=== PATIENT | female | born 1990 | race Caucasian/White ===

== ENCOUNTER → 2020-08-28 | Outpatient (CLI) | payer OTHER ==
[~2020-08-28] MED LIST: DIATRIZOATE MEGL/DIATRIZOA SOD 30 ML BTL PO ONE; IOPAMIDOL 370 MG/ML 200 ML INFUS..BTL INJ ONE; SODIUM CHLORIDE 0.9% 50ML 50 ML ONE
--- NOTE | 2020-08-28 18:00 | Diagnostic Imaging Report ---
EXAM: CT Abdomen and Pelvis WITH contrast INDICATION: Ventral hernia suspicious for bowel incarceration versus translation. COMPARISON: None. TECHNIQUE: Abdomen and pelvis were scanned utilizing a multidetector helical scanner from the lung base to the pubic symphysis after administration of IV contrast. Coronal and sagittal reformations were obtained. Routine protocol was performed. Scan was performed when during portal venous phase. IV CONTRAST: 100 mL of Isovue 370 ORAL CONTRAST: None COMPLICATIONS: None RADIATION DOSE: Total DLP: 426 mGy*cm Estimated effective dose: (DLP x 0.015 x size factor) mSv CTDIvol has been reviewed. It is below the limits set by the Radiation Protocol Committee (RPC). Dose modulation, iterative reconstruction, and/or weight based adjustment of the mA/kV was utilized to reduce the radiation dose to as low as reasonably achievable. FINDINGS: LINES and TUBES: None. LOWER THORAX: Unremarkable HEPATOBILIARY: No focal hepatic lesions. No biliary ductal dilation. GALLBLADDER: There is a 1 cm radiodense gallstone. No wall thickening. SPLEEN: No splenomegaly. PANCREAS: No focal masses or ductal dilatation. ADRENALS: No adrenal nodules KIDNEYS/URETERS: Kidneys enhance symmetrically. No hydronephrosis. No cystic or solid mass lesions. No stones. GI TRACT: No abnormal distention, wall thickening, or evidence of bowel obstruction. Appendix is normal. PELVIC ORGANS/BLADDER: There is an intrauterine contraceptive device in place. The urinary bladder has a normal wall contour. Pelvic organs are normal for technique. LYMPH NODES: No lymphadenopathy. VESSELS: Unremarkable. PERITONEUM / RETROPERITONEUM: No free air or fluid. BONES: There is bilateral L5 pars defect with grade 1 anterolisthesis of L5 on S1. The bones are otherwise within normal limits. SOFT TISSUES: There are two fat containing para-umbilical hernias. The one on the left has a ventral wall defect measuring 2.2 cm, the one on the right has been toward defect measuring 1.5 cm. There are no loops of bowel contained within these hernias. IMPRESSION: 1. Two adjacent fat containing para-umbilical hernias with ventral wall defect measuring 2.2 cm and 1.5 cm. No bowel contained within these hernias. No evidence of bowel obstruction or inflammation. 2. Cholelithiasis without evidence of cholecystitis. 3. Bilateral L5 pars defect with grade 1 anterolisthesis of L5 on S1 Signed by: Chantelle Kamara MD on 08/28/2020 5:57 PM
== END ==
LOC: CT 15:42
PROVIDERS: ATTEND Surgery
DX: K43.2 Incisional hernia without obstruction or gangrene (principal)
CPT/HCPCS: 74177; 81025; Q9967

== ENCOUNTER 2020-09-14 08:14 | Inpatient (IN) | payer OTHER ==
[2020-09-11 14:58] LABS: BASOPHILS % 0.4 % (0.0-1.0); EOSINOPHILS # (AUTO) 0.2 (0.0-0.4); EOSINOPHILS % 2.6 % (0.0-6.0); HEMOGLOBIN 12.7 g/dL (12.0-16.0); LYMPHOCYTES # (AUTO) 1.4 (1.0-3.2); LYMPHOCYTES % 19.4 % (18.0-39.1); MEAN CORPUSCULAR HEMOGLOBIN 26.4 pg (28-32); MEAN CORPUSCULAR HGB CONC 31.8 g/dL (31-35); MEAN CORPUSCULAR VOLUME 83.2 fL (81-99); MONOCYTES # (AUTO) 0.4 (0.2-0.8); MONOCYTES % 5.1 % (4.4-11.3); NEUTROPHILS # (AUTO) 5.3 (2.1-6.9); NEUTROPHILS % 72.2 % (38.7-80.0); PLATELET COUNT 213 x10e3/uL (140-360); RED BLOOD COUNT 4.81 x10e6/uL (3.6-5.1); RED CELL DISTRIBUTION WIDTH 14.5 % (11.7-14.4)
[2020-09-11 15:25] LABS: ANION GAP 10.7 mmol/L (8-16); BLOOD UREA NITROGEN 12 mg/dL (7-26); BUN/CREATININE RATIO 15 (6-25); CALCIUM 9.2 mg/dL (8.4-10.2); CARBON DIOXIDE 28 mmol/L (22-29); CHLORIDE 105 mmol/L (98-107); CREATININE, SERUM 0.79 mg/dL (0.57-1.11); EST GLOMERULAR FILTRATION RATE > 60 ML/MIN (60-); GLUCOSE 98 mg/dL (74-118); POTASSIUM 3.7 mmol/L (3.5-5.1); SODIUM 140 mmol/L (136-145)
[~2020-09-14] VITALS: Ht 160 cm; Wt 80.8 kg
[~2020-09-14 08:14] MED LIST changes: -DIATRIZOATE MEGL/DIATRIZOA SOD 30 ML BTL PO ONE; -IOPAMIDOL 370 MG/ML 200 ML INFUS..BTL INJ ONE; +MELOXICAM7.5 MG PO; +MONTELUKAST SOD10 MG PO; -SODIUM CHLORIDE 0.9% 50ML 50 ML ONE; +VALACYCLOVIR500 MG PO; +XYZAL5 MG
[2020-09-14] MEDS ORDERED: CEFAZOLIN SOD 1 GM/NS 50ML 50 ML IV ONE (08:56)
[2020-09-14] MEDS ORDERED: BUPIVACAINE 0.25% 30ML SDV ONE (10:48)
[2020-09-14] MEDS ORDERED: CLINDAMYCIN PHOS 300MG/2ML VIAL ONE (11:48)
[2020-09-14] MEDS ORDERED: GLYCOPYRROLATE 0.2 MG/ML VIAL ONE (11:50)
[2020-09-14] MEDS ORDERED: HYDROMORPHONE 2MG/ML 2 MG/ML ML ONE (11:51)
[2020-09-14] MEDS ORDERED: ACETAMINOPHEN 1000 MG/100 ML 100 ML IV ONE (11:51)
[2020-09-14] MEDS ORDERED: ROCURONIUM BROMIDE 10 MG/ML 5ML VIAL IV ONE (14:28)
[2020-09-14] MEDS ORDERED: CEFAZOLIN SOD 1 GM VIAL ONE (14:28)
[2020-09-14] MEDS ORDERED: SEVOFLURANE INHAL SOLN 250 ML PEN BTL ONE (14:28)
[2020-09-14] MEDS ORDERED: NEOSTIGMINE 1 MG/ML 10ML VIAL ONE (14:28)
[2020-09-14] MEDS ORDERED: LIDOCAINE HCL 2% LOCAL INJ 5 ML SDV VIAL INJ ONE (14:28)
[2020-09-14] MEDS ORDERED: DEXAMETHASONE SOD PHOS INJ 4 MG/ML VIAL ONE (14:28)
[2020-09-14] MEDS ORDERED: ONDANSETRON HCL INJ 2MG/ML 2ML 2 MG/ML VIAL ONE (14:28)
[2020-09-14] MEDS ORDERED: PROPOFOL IV EMULSION 10 MG/ML 20 ML VIAL ONE (14:28)
[2020-09-14] MEDS ORDERED: KETOROLAC TROMETHAMINE 30 MG/ML VIAL ONE (14:28)
[2020-09-14] MEDS ORDERED: MIDAZOLAM HCL 2 MG/2 ML VIAL ONE (14:38)
[2020-09-14] MEDS ORDERED: FENTANYL CITRATE/PF 100MCG/2 ML INJ ONE (14:38)
[2020-09-14] MEDS ORDERED: BACITRACIN ZINC 15 GM OINT ONE (14:52)
[2020-09-14] MEDS ORDERED: MELOXICAM 7.5 MG TAB PO PRN (15:00)
[2020-09-14] MEDS: ONDANSETRON HCL INJ 2MG/ML 2ML 2 MG/ML VIAL IV PRN ×2 (15:18→18:26)
[2020-09-14] MEDS ORDERED: KETOROLAC TROMETHAMINE 30 MG/ML VIAL IV PRN (15:30)
--- NOTE | 2020-09-14 16:09 | Operative Report ---
DATE OF PROCEDURE: 09/14/2020 SURGEON: Sanjay Celestin MD PREOPERATIVE DIAGNOSIS: Ventral hernias. POSTOPERATIVE DIAGNOSIS: Ventral hernias. PROCEDURE PERFORMED: Repair of ventral hernias with partial omentectomy and placement of a large Proceed ventral patch mesh in the intraabdominal location and placement of a Prolene hernia system as an onlay patch. SUPERVISOR FIREARMS: [place] Kelly. ESTIMATED BLOOD LOSS: About 125 mL. DRAINS: 10 mm flat Clive-Jessica drain. COMPLICATIONS: None. INDICATION AND FINDINGS: This is a 30-year-old female who several years ago had undergone repair of a ventral hernia laparoscopically. She had a complicated course. She was told by her operating surgeon that she had a 2nd hernia that developed the next day and then she had to go back to the operating room, and she now presents with a bulge of the abdomen that is unpleasant to her and increasing in size. On physical examination, she had two palpable hernias located one to the left of the umbilical region, the other one to the right and inferior to it. The CAT scan revealed 2 ventral hernia defects, one large on the left than the right; however, after exploration of the wound through a transverse incision, she was found to have multiple hernias. The total of 5 hernias were found and we had to place a Proceed ventral patch in the intraabdominal cavity to cover at least 3 of those hernias in order to prevent closure with tension and then we loosely closed thin fascia overdose. There were two other small hernias that were closed initially primarily and then covered with a mesh as an Onlay patch and they were properly meshed. A 10 mm flat Clive-Jessica drain was placed. At the end of the procedure, which took longer than expected due to the complexity of the case about 4 hours, which was longer than the usual time, I informed the patient's that she needed to be admitted for postop care. DESCRIPTION OF PROCEDURE: With the patient lying on the operative table in the supine position after administration of general anesthesia, she was prepped and draped for repair of ventral hernia. A transverse incision was made across the midline extending from one end of the hernia on the left to the other end of the hernia on the right and then, the dissection was carried down through the skin and subcutaneous tissues. There were multiple adhesions. There were multiple pockets of herniation with the old mesh. We had to dissect each pocket, each hernia individually, remove some of the old mesh. We also had to perform a partial omentectomy by transecting the omentum and tying it off with 2-0 Vicryl. After we reduced all these hernias that were incarcerated with omentum and performing the partial omentectomy, we then prepared the defect to closure. I decided to place the Proceed ventral patch to cover the 3 larger hernias in the intraabdominal location and it was secured in multiple locations with 2-0 Ethibond to prevent rotation and then to the fascia through the straps. The other two remaining hernias were smaller and were closed primarily with interrupted 2-0 Ethibond sutures. We loosely approximated the fascia on the three hernias that were the larger ones that had been repaired with a PPV patch and covered the fascia over the old mesh to prevent any exposure to the outside and then we used the 6-inch polypropylene mesh to cover the defects. The mesh was secured to the fascia using a series of interrupted 2-0 Ethibond sutures as well as 2-0 Vicryl and as well as segun. The mesh laid flat completely without any tension. We then placed a 10 mm flat Clive-Jessica drain to drain the wound and brought out through a stab wound inferior to the incision and we placed it in such a way that both sides of the wound would drain . We then closed the subcutaneous tissues using 2-0 plain catgut for the soft tissues, this subcuticular plane was closed using 3-0 Vicryl and the skin was closed with a combination of segun and 3-0 silk. Sterile dressing was applied. The patient tolerated the procedure well, was taken to the recovery room in stable condition. MD AARON Santo/MAX /[id number]
--- NOTE | 2020-09-14 17:00 | NUR ---
RECEIVED REPORT FROM PACU. PATIENT ARRIVED TO THE UNIT @ 1700 VIA STRETCHER. PATIENT IN STABLE CONDITION, NO S/S OF DISTRESS NOTED. ABDOMEN BINDER NOTED WITH A NATHALY DRAIN, DRESSING UNDER ABDOMEN BINDER C/D/I. IV SITE ASYMPTOMATIC AND PATENT, TRANSPARENT DRESSING, C/D/I. BED IN LOWEST POSITION AND LOCKED, SIDE RAILS X2, NONSKID SOCKS APPLIED. CALL LIGHT WITHIN REACH.
[2020-09-14 17:14] VITALS: BP 103/69
[2020-09-14 17:15] VITALS: BP 103/69
[2020-09-14 17:24] VITALS: BP 103/69
[2020-09-14] MEDS: CEFAZOLIN SOD 1 GM/NS 50ML 50 ML IV SCH (18:21)
[2020-09-14] MEDS: DEXTROSE 5%/LACTATED RINGERS 1,000 ML IV SCH (18:21)
[2020-09-14] MEDS: PANTOPRAZOLE 40 MG 10ML VIAL IV SCH (18:21)
[2020-09-14] MEDS: HYDROMORPHONE 1MG/1ML INJ IV PRN (18:26)
[2020-09-14 19:23] VITALS: BP 113/74
--- NOTE | 2020-09-14 19:46 | NUR ---
COMPLETED BEDSIDE SHIFT REPORT AND ROUNDING WITH ONCOMING NIGHT NURSE. PATIENT IN STABLE CONDITION, NO S/S OF DISTRESS NOTED. ABDOMEN BINDER NOTED WITH A NATHALY DRAIN, DRESSING UNDER ABDOMEN BINDER C/D/I. IV SITE ASYMPTOMATIC AND PATENT, TRANSPARENT DRESSING, C/D/I. BED IN LOWEST POSITION AND LOCKED, SIDE RAILS X2, NONSKID SOCKS APPLIED. CALL LIGHT WITHIN REACH.
[2020-09-14 19:49] VITALS: BP 113/74
[2020-09-14] MEDS: HYDROCODONE/APAP 7.5MG-325MG 1 EA TAB PO PRN (22:20)
[2020-09-14 23:54] VITALS: BP 112/72
[2020-09-15] VITALS (7 sets, daily range): BP systolic 103–114; BP diastolic 65–71
[2020-09-15] MEDS: CEFAZOLIN SOD 1 GM/NS 50ML 50 ML IV SCH ×4 (00:17→16:09)
[2020-09-15] MEDS: HYDROCODONE/APAP 7.5MG-325MG 1 EA TAB PO PRN ×4 (04:10→20:25)
[2020-09-15 05:31] LABS: BASOPHILS % 0.1 % (0.0-1.0); EOSINOPHILS % 0.2 % (0.0-6.0); HEMOGLOBIN 10.1 g/dL (12.0-16.0); LYMPHOCYTES # (AUTO) 1.1 (1.0-3.2); LYMPHOCYTES % 11.6 % (18.0-39.1); MEAN CORPUSCULAR HEMOGLOBIN 26.4 pg (28-32); MEAN CORPUSCULAR HGB CONC 31.6 g/dL (31-35); MEAN CORPUSCULAR VOLUME 83.8 fL (81-99); MONOCYTES # (AUTO) 0.6 (0.2-0.8); MONOCYTES % 6.9 % (4.4-11.3); NEUTROPHILS # (AUTO) 7.4 (2.1-6.9); NEUTROPHILS % 80.8 % (38.7-80.0); PLATELET COUNT 162 x10e3/uL (140-360); RED BLOOD COUNT 3.82 x10e6/uL (3.6-5.1); RED CELL DISTRIBUTION WIDTH 14.2 % (11.7-14.4)
[2020-09-15 05:44] LABS: ANION GAP 12.2 mmol/L (8-16); BLOOD UREA NITROGEN 10 mg/dL (7-26); BUN/CREATININE RATIO 14 (6-25); CALCIUM 8.1 mg/dL (8.4-10.2); CARBON DIOXIDE 27 mmol/L (22-29); CHLORIDE 104 mmol/L (98-107); CREATININE, SERUM 0.71 mg/dL (0.57-1.11); EST GLOMERULAR FILTRATION RATE > 60 ML/MIN (60-); GLUCOSE 111 mg/dL (74-118); POTASSIUM 4.2 mmol/L (3.5-5.1); SODIUM 139 mmol/L (136-145)
--- NOTE | 2020-09-15 06:15 | NUR ---
REMOVED STEVE AT THIS TIME. CATHETER TIP INTACT. D/T VOID AT 1215.
[2020-09-15] MEDS: DEXTROSE 5%/LACTATED RINGERS 1,000 ML IV SCH ×2 (06:24→10:16)
[2020-09-15] MEDS: VALACYCLOVIR HCL 500 MG TAB PO SCH (09:10)
--- OUTSIDE RECORDS SUMMARY | 2020-09-15 10:05 | XMS REPORT | Continuity of Care Document ---
Author Author Raji [employer] DORINA Romero Organization [employer] Address Unknown Phone Unavailable Care Team Providers Care Rope Maker Name Role Phone TELA [employer] Unavailable Un available Problems Problem Status Onset Date Classification Date Reported Comments Source UNK Active 0 07/25/2015 [facility] K43.2 Active 07/25/2015 [facility] UMBILICAL HERNIA Active 03/13/2015 [facility] 03/13/2015 [facility] 553.1 Active 03/13/2015 [facility] Dilation and curettage (procedure) Active Problem 11/2018 [facility] [place] Incisional hernia (disorder) A ctive Problem 11/2018 [facility] [place] Obesity (disorder) Active Problem 07/27/2019 [facility] [place] Umbilical hernia (disorder) Re solved Problem 11/2018 [facility] [place] Entire sciatic nerve (body structure) Active Problem [facility] UMBILICAL HERNIA Active [facility] Medications Medication Details Route Status Patient Instructions Ordering Provider Order Date Source Acetaminophen 325 MG / Hydrocodone Aldair trate 10 MG Oral Tablet [[place] ] 1 tab, Route: PO, Drug Form: TAB, Dosing Weight 100.136, kg, Q6H, PRN Pain, Start date: 08/10/15 9:34:00, Duration: 30 day, Stop date: 09/09/15 9:33:00 Inactive 08/10/2015 [facility] Ofirmev or = 50 kg, Start trerence e: 08/10/15 9:34:00 Inactive 08/10/2015 [facility] Ondansetron 4 mg, Route: IVP, ONCE, Dosing Weight 100.136, kg, PRN Nausea & Vomiting, Start date: 08/10/15 9:34:00 Inactive 08/10/2015 [facility] Flumazenil 0.2 mg, Route: IVP, PRN, Dosing Weight 100.136, kg, PRN Benzodiazepine Reversal, Initial dose, Start date: 08/10/15 9:34:00, Duration: 30 day, Stop date: 09/09/15 8:33:00 Inactive 08/10/2015 [facility] Naloxone 0.04 mg, Route: IVP, Q2MIN, Dosing Weight 100.136, kg, PRN Narcotic Reversal, Start date: 08/10/15 9:34:00, Duration: 8 doses or times, Stop date: Limited # of times Inactive 08/10/2015 [facility] Oxycodone 10 mg, Route: PO, Dr ug form: TAB, Q4H, Dosing Weight 100.136, kg, PRN Pain Score 7-10, Start date: 08/10/15 9:34:00, Duration: 30 day, Stop date: 09/09/15 9:33:00 Inactive 08/10/2015 [facility] Fentanyl 50 microgram, Route: IVP, Q5Min, Dosing Weight 100.136, kg, PRN Pain Score 7-10, Start date: 08/10/15 9:34:00, Duration: 2 doses or times, Stop date: Limited # of times Inactive 08/10/2015 [facility] Ketorolac 30 mg, Route: IVP, O NCE, Dosing Weight 100.136, kg, Start date: 08/10/15 9:34:00, Duration: 1 doses or times, Stop date: 08/10/15 9:34:00 Inactiv e 08/10/2015 [facility] Hydromorphone 0.5 mg, Route: I SHEEP CLIPPER, Q5Min, Dosing Weight 100.136, kg, PRN Pain Score 7-10, Start date: 08/10/15 9:34:00, Duration: 4 doses or times, Stop date: Limited # of times Inactive 08/10/2015 [facility] Calcium Chloride 0.0014 MEQ/ML / Potassi um Chloride 0.004 MEQ/ML / Sodium Chloride 0.103 MEQ/ML / Sodium Lactate 0.028 MEQ/ML Injectable Solution 1,000 mL, Rate: 25 ml/hr, Infuse over: 4 0 hr, Route: IV, Dosing Weight 100.136 kg, Total Volume: 1,000, Start date: 08/10/15 6:53:00, Duration: 30 day, Stop date: 09/09/15 6:52:00 Inactive 08/10/2015 [facility] Cefazolin Notes: Same as: Ancef Inactive 08/08/2015 [facility] Ondansetron 4 mg, Route: IVP, ONCE, Dosing Weight 99.602, kg, PRN Nausea & Vomiting, Start date: 07/06/15 9:16:00 Inactive 07/06/2015 [facility] Flumazenil 0.2 mg, Route: IVP, PRN, Dosing Weight 99.602, kg, PRN Benzodiazepine Reversal, Initial dose, Start date: 07/06/15 9:16:00, Duration: 30 day, Stop date: 08/05/15 9:15:00 Inactive 07/06/2015 [facility] Naloxone 0.04 mg, Route: IVP, Q2MIN, Dosing Weight 99.602, kg, PRN Narcotic Reversal, Start date: 07/06/15 9:16:00, Duration: 8 doses or times, Stop date: Limited # of times Inactive 07/06/2015 [facility] Meperidine 12.5 mg, Route: IVP , Q30Min, Dosing Weight 99.602, kg, PRN Other -See Comment, For shivering, Start date: 07/06/15 9:16:00, Duration: 2 doses or times, Stop date: Limited # of times Inactive 07/06/2015 [facility] Fentanyl 50 microgram, Route: IVP, Q5Min, Dosing Weight 99.602, kg, PRN Pain Score 7-10, Start date: 07/06/15 9:16:00, Duration: 2 doses or times, Stop date: Limited # of times Inactive 07/06/2015 [facility] Hydromorphone 0.5 mg, Route: I SHEEP CLIPPER, Q5Min, Dosing Weight 99.602, kg, PRN Pain Score 7-10, Start date: 07/06/15 9:16:00, Duration: 4 doses or times, Stop date: Limited # of times Inactive 07/06/2015 [facility] Oxycodone 5 mg, Route: PO, Anurag g form: TAB, Q4H, Dosing Weight 99.602, kg, PRN Pain Score 4-6, Start date: 07/06/15 9:16:00, Duration: 30 day, Stop date: 08/05/15 9:15:00 Inactive 07/06/2015 [facility] Acetaminophen 1,000 mg, Route: IVPB, Drug form: INJ, ONCE, Dosing Weight 99.602, kg, PRN Pain Score 1-3, Start date: 07/06/15 9:16:00, Duration: 1 doses or times, Stop date: Limited # of times Inactive 07/06/2015 [facility] Acetaminophen 300 MG / Codeine Phosphate 30 MG Oral Tablet [Tylenol with Codeine #3] 1 tab, PO, Q4H, PRN for pain, # 20 tab, 0 Refill(s) Active 07/06/2015 [facility] Calcium Chloride 0.0014 MEQ/ML / Potassi um Chloride 0.004 MEQ/ML / Sodium Chloride 0.103 MEQ/ML / Sodium Lactate 0.028 MEQ/ML Injectable Solution 1,000 mL, Rate: 25 ml/hr, Infuse over: 4 0 hr, Route: IV, Dosing Weight 99.602 kg, Total Volume: 1,000, Start date: 07/06/15 6:43:00, Duration: 30 day, Stop date: 08/05/15 6:42:00 Inactive 07/06/2015 [facility] Cefazolin Notes: Same as: Ancef Inactive 07/03/2015 [facility] Allergies, Adverse Reactions, Alerts Substance Category Reaction Severity Reaction type Status Date Reported Comments Source No Known Medication Allergies Assertion Drug aller gy [facility] [place] Immunizations No Data Provided for This Section Results Order Name Results Value Reference Range Date Interpretation Comments Source ENDOCRINOLOGY S Preg Ne gative *NA* (08/08/15 11:48 AM) Negative 08/08/2015 [facility] HEMATOLOGY Basophils 0.3 0.0 - 1.0 08/08/2015 [facility] HEMATOLOGY Eosinophils 2.2 0.0 - 4.0 08/08/2015 [facility] HEMATOLOGY Monocytes 7.6 2.0 - 12.0 08/08/2015 [facility] Lymphocytes 21.9 20.0 - 40.0 08/08/2015 [facility] HEMATOLOGY Eosinophils # 0.1 0.0 - 0.5 08/08/2015 [facility] Lymphocytes # 1.1 1.0 - 5.5 08/08/2015 [facility] HEMATOLOGY Segs-Bands # 3.5 1.5 - 8.1 08/08/2015 [facility] Monocytes # 0.4 0.0 - 0.8 08/08/2015 [facility] HEMATOLOGY Microcyte 1+ *ABN* (08/08/15 11:48 AM) None Seen 08/08/2015 [facility] HEMATOLOGY Segs 68.0 45.0 - 75.0 08/08/2015 [facility] HEMATOLOGY WBC 5.2 3.7 - 10.4 08/08/2015 [facility] HEMATOLOGY RBC 4.91 4.20 - 5.40 08/08/2015 [facility] HEMATOLOGY Hct 36.5 36.0 - 48.0 08/08/2015 [facility] HEMATOLOGY Hgb 11.4 12.0 - 16.0 08/08/2015 [facility] HEMATOLOGY MCV 74.3 80.0 - 98.0 08/08/2015 [facility] HEMATOLOGY MCH 23.1 27.0 - 31.0 08/08/2015 [facility] HEMATOLOGY MCHC 31.2 32.0 - 36.0 08/08/2015 [facility] HEMATOLOGY RDW 16.4 11.5 - 14.5 08/08/2015 [facility] MPV 8.2 7.4 - 10.4 08/08/2015 [facility] HEMATOLOGY Platelet 160 133 - 450 08/08/2015 [facility] ENDOCRINOLOGY S Preg Ne gative *NA* (07/03/15 4:53 PM) Negative 07/03/2015 [facility] HEMATOLOGY Segs-Bands # 4.6 1.5 - 8.1 07/03/2015 [facility] HEMATOLOGY Lymphocytes # 1.7 1.0 - 5.5 07/03/2015 [facility] HEMATOLOGY Eosinophils 1.8 0.0 - 4.0 07/03/2015 [facility] HEMATOLOGY Basophils 0.2 0.0 - 1.0 07/03/2015 [facility] HEMATOLOGY Monocytes 6.3 2.0 - 12.0 07/03/2015 [facility] HEMATOLOGY Lymphocytes 24.8 20.0 - 40.0 07/03/2015 [facility] HEMATOLOGY Eosinophils # 0.1 0.0 - 0.5 07/03/2015 [facility] HEMATOLOGY Microcyte 1+ *ABN* (07/03/15 4:53 PM) None Seen 07/03/2015 [facility] HEMATOLOGY Monocytes # 0.4 0.0 - 0.8 07/03/2015 [facility] HEMATOLOGY Segs 66.9 45.0 - 75.0 07/03/2015 [facility] HEMATOLOGY WBC 6.8 3.7 - 10.4 07/03/2015 [facility] HEMATOLOGY MPV 8.3 7.4 - 10.4 07/03/2015 [facility] HEMATOLOGY Platelet 193 133 - 450 07/03/2015 [facility] HEMATOLOGY RDW 16.1 11.5 - 14.5 07/03/2015 [facility] MCHC 32.4 32.0 - 36.0 07/03/2015 [facility] MCH 23.7 27.0 - 31.0 07/03/2015 [facility] HEMATOLOGY MCV 73.0 80.0 - 98.0 07/03/2015 [facility] RBC 4.98 4.20 - 5.40 07/03/2015 [facility] Hct 36.4 36.0 - 48.0 07/03/2015 [facility] Hgb 11.8 12.0 - 16.0 07/03/2015 [facility] Pathology Reports No Data Provided for This Section Diagnostic Reports Report Value Date Source Foot 3 views bilateral DX EXAM : XR BILATERAL FOOT 3 VIEWS DATE: 07/25/2019 10:06 CDT INDICATION: - bunion left foot, right foot, elevated rheumatoid factor COMPARISON: None. TECHNIQUE: AP, lateral and oblique radiographs of the bilateral feet FINDINGS: No acute fracture or malalignment is identified. Mild hallux valgus abnormality of the left 1st toe noted. No cortical erosions noted. No soft tissue abnormality is identified. IMPRESSION: No radiographic evidence of inflammatory arthropathy. 07/25/2019 [facility] Hand 2 views Bilateral DX EXAM : XR BILATERAL HAND 2 VIEWS DATE: 07/25/2019 10:05 CDT INDICATION: - arthralgia of both hands COMPARISON: None. TECHNIQUE: PA and lateral radiographs of the bilateral hands. FINDINGS: No acute fracture or malalignment is identified. No cortical erosions noted. Joint spaces and bone mineral density are preserved. No soft tissue abnormality is identified. IMPRESSION: No radiographic evidence of inflammatory arthropathy. 07/25/2019 [facility] Consultation Notes No Data Provided for This Section Discharge Summaries No Data Provided for This Section History and Physicals No Data Provided for This Section Vital Signs Vital Sign Value Date Comments Source Respitory Rate 18 08/10/2015 [facility] Systolic (mm Hg) 113 08/10/2015 [facility] Diastolic (mm Hg) 66 08/10/2015 [facility] Respitory Rate 18 08/10/2015 [facility] Systolic (mm Hg) 116 08/10/2015 [facility] Diastolic (mm Hg) 66 08/10/2015 [facility] Respitory Rate 18 08/10/2015 [facility] Systolic (mm Hg) 107 08/10/2015 [facility] Diastolic (mm Hg) 85 08/10/2015 [facility] Heart Rate 91 08/08/2015 [facility] Temperature Oral (F) 98.4 F 08/08/2015 [facility] Weight 100.136 08/08/2015 [facility] Height 160.02 cm 08/08/2015 [facility] BMI Calculated 39.11 08/08/2015 [facility] Systolic (mm Hg) 116 07/06/2015 [facility] Diastolic (mm Hg) 73 07/06/2015 [facility] Systolic (mm Hg) 114 07/06/2015 [facility] Diastolic (mm Hg) 76 07/06/2015 [facility] Systolic (mm Hg) 108 07/06/2015 [facility] Diastolic (mm Hg) 89 07/06/2015 [facility] Respitory Rate 22 07/06/2015 [facility] Respitory Rate 18 07/06/2015 [facility] Respitory Rate 17 07/06/2015 [facility] Heart Rate 88 07/06/2015 [facility] Temperature Oral (F) 97.9 F 07/03/2015 [facility] Heart Rate 90 07/03/2015 [facility] BMI Calculated 40.16 07/03/2015 [facility] Weight 99.602 07/03/2015 [facility] Height 157.48 cm 07/03/2015 [facility] Height 63 0 03/13/2015 [facility] Weight 211 03/13/2015 [facility] Temperature Oral (F) 98.3 F 03/13/2015 [facility] Heart Rate 89 03/13/2015 [facility] Systolic (mm Hg) 118 03/13/2015 [facility] Diastolic (mm Hg) 77 03/13/2015 [facility] Encounters Location Location Details Encounter Type Encounter Number Reason For Visit Attending Provider ADM Date DC Date Status Source [facility] General Surgery 350 Office Visit [id number] Ming Zelaya MD 03/13/2015 03/13/2015 [facility] Outpatient [id number] MING ZELAYA 07/06/2015 Active [facility] OBS Day Surgery [id number] Ming Zelaya 07/06/2015 07/06/2015 [facility] Outpatient [id number] MING ZELAYA 07/18/2015 Active [facility] Outpatient [id number] MING ZELAYA 08/10/2015 [facility] OBS Day Surgery [id number] Ming Zelaya 08/10/2015 08/10/2015 [facility] Outpatient [id number] MING ZELAYA 08/22/2015 [facility] Outpatient [id number] MING ZELAYA 10/11/2015 [facility] Outpatient [id number] MING ZELAYA 10/11/2015 [facility] [place] Out[facility] Diag Services [id number] Mary Alice Nice 07/25/2019 07/26/2019 [facility] Procedures Procedure Code Date Perfomer Comments Source Repair of umbilical hernia<sup>1</sup> 07854943 07/06/2015 with mesh [facility] Breast reduction, bilateral<sup>2</sup> [id number] 2010 [facility] section<sup>3</sup> 1 [id number] x2 [facility] Dilation and curettage<sup>4</sup> [id number] 01/01/2012 [facility] Laparoscopic repair of incisional hernia [id number] [facility] Breast reduction, bilateral<sup>1</sup> [id number] 2010 [facility] section<sup>2</sup> 1 3515974 x2 [facility] Dilation and curettage<sup>3</sup> 31532580 01/01/2012 [facility] Assessment and Plan Assessment and Plan Date Source Extracted from:Title: Clinical Document Author: Ming Zelaya MD Date: 06/27/15 HISTORY AND PHYSICAL Ming Zelaya M.D., F.A.C.S. Referring Provider: Dr. Way CC: "I have a hernia". History of Present Illness: THANK YOU DR. WAY FOR SENDING MRS. DORINA CORREIA FOR CONSULTATION AND EVALUATION OF AN UMBILICAL HERNIA. This patient is a 24 year old female who describes an umbilical pain with activity and straining. Possible bulge or hernia. First noticed 2 years ago after . Takes OTC pain meds prn with some relief Denies dysuria. No nausea or emesis. No fevers. No other complaints. Complete review of systems is otherwise negative except as stated above. ............Ming Zelaya MD March 25 10:20 AM Past Medical History: Reviewed history and no changes required: gonorrhea miscarriage Past Surgical History: Reviewed history and no changes required: breast reduction:10/05 : 03/05, 03/07 D&C: 01/04 Risk Factors: Smoked Tobacco Use: Never smoker Drug use: no Caffeine use: 3 drinks per day Alcohol use: no Previous Tobacco Use: Review of Systems See HPI GI Complains of indigestion and abdominal bloating. umbilical hernia Vital Signs: Patient Profile: 24 Years Old Female Height: 63 inches (160.02 cm) Weight: 211 pounds (95.91 kg) BMI: 37.51 kg/m2 BSA: 1.98 m2 Temp: 98.3 degrees F (36.83 degrees C) oral Pulse rate: 89 / minute BP sittin / 77 (right arm) Cuff size: large Vitals Entered By: Judy Solano (March 13, 2015 1:44 PM) Physical Exam General: well developed, well nourished, in no acute distress. Head: normocephalic and atraumatic. Eyes: PERRL/EOM intact, conjunctiva and sclera clear with out nystagmus. Nose: no deformity, discharge, inflammation, or lesions. Mouth: no deformity or lesions with good dentition. Neck: no masses, thyromegaly, or abnormal cervical nodes. Lungs: clear bilaterally to auscultation. Heart: regular rhythm. Abdomen: reducible, mildly tender umbilical hernia. No peritonitis. No skin changes or erythema. No mass or guarding. Msk: no deformity or scoliosis noted of thoracic or lumbar spine. Pulses: pulses normal in all 4 extremities. Extremities: no clubbing, cyanosis, edema, or deformity noted with normal full range of motion of all joints. Neurologic: no focal deficits, cranial nerves II-XII grossly intact with normal sensation, reflexes, coordination, muscle strength and tone. Skin: intact without lesions or rashes. Cervical Nodes: no significant adenopathy. Axillary Nodes: no significant adenopathy. Inguinal Nodes: no significant adenopathy. Psych: alert and cooperative; normal mood and affect; normal attention span and concentration. Impression and Recommendations: Problem # 1: UMBILICAL HERNIA (ICD-553.1) (EPQ43-Z85.9) schedule umbilical hernia repair with mesh - date pending discussed with patient risks, benefits, alternatives to surgery. Patient understands and agrees to proceed. Questions have been answered. activity as tolerated diet as tolerated ok for patient to return to work, no restrictions patient may follow up with me prn Orders: OFFICE CONSLTJ 40 MIN - [id number] ([id number]) Addendum by Ming Zelaya MD on 07/06/2015 06:19 History and Physical updated. No new changes or additions. 07/06/2015 [facility] Plan of Care No Data Provided for This Section Social History Social History Date Source Social History TypeResponse Smoking Status Never smoker; Lives with someone who smokes; Cigarette Smoking Last 365 Days No; Reg Smoking Cessation Counseling No entered on: 10/11/15 10/11/2015 [facility] Social History TypeResponse Smoking Status Never smoker; Exposure to Tobacco Smoke None; Cigarette Smoking Last 365 Days No; Reg Smoking Cessation Counseling No 08/08/2015 [facility] Family History No Data Provided for This Section Advance Directives No Data Provided for This Section Functional Status No Data Provided for This Section
[2020-09-15] MEDS: PANTOPRAZOLE 40 MG 10ML VIAL IV SCH (16:09)
[2020-09-15] MEDS: ONDANSETRON HCL INJ 2MG/ML 2ML 2 MG/ML VIAL IV PRN (20:11)
[2020-09-16] VITALS (8 sets, daily range): BP systolic 109–119; BP diastolic 70–81
[2020-09-16] MEDS: CEFAZOLIN SOD 1 GM/NS 50ML 50 ML IV SCH ×5 (00:27→23:43)
[2020-09-16] MEDS: HYDROCODONE/APAP 7.5MG-325MG 1 EA TAB PO PRN ×3 (02:00→23:42)
[2020-09-16 06:12] LABS: ANION GAP 10.8 mmol/L (8-16); BLOOD UREA NITROGEN 8 mg/dL (7-26); BUN/CREATININE RATIO 11 (6-25); CALCIUM 7.8 mg/dL (8.4-10.2); CARBON DIOXIDE 27 mmol/L (22-29); CHLORIDE 105 mmol/L (98-107); EST GLOMERULAR FILTRATION RATE > 60 ML/MIN (60-); GLUCOSE 89 mg/dL (74-118); POTASSIUM 3.8 mmol/L (3.5-5.1); SODIUM 139 mmol/L (136-145)
[2020-09-16] MEDS: DEXTROSE 5%/LACTATED RINGERS 1,000 ML IV SCH ×2 (07:20→20:20)
[2020-09-16] MEDS: VALACYCLOVIR HCL 500 MG TAB PO SCH (08:29)
[2020-09-16] MEDS: HYDROMORPHONE 1MG/1ML INJ IV PRN ×2 (13:36→19:40)
[2020-09-16] MEDS: ONDANSETRON HCL INJ 2MG/ML 2ML 2 MG/ML VIAL IV PRN ×2 (13:36→19:40)
[2020-09-16] MEDS: PANTOPRAZOLE 40 MG 10ML VIAL IV SCH (16:36)
--- NOTE | 2020-09-16 19:00 | NUR ---
RECEIVED PATIENT IN BEDSIDE SHIFT REPORT. PATIENT RESTING IN BED AT THIS TIME. PAIN 5/10. EATING REG DIET AT THIS TIME, NO NAUSEA OR NEW ABD PAIN REPORTED. NO S&S OF DISTRESS NOTED. BED LOCKED IN LOWEST POSITION, SIDE RAILS UPX2, CALL LIGHT IN REACH.
[2020-09-17 00:58] VITALS: BP 104/67
[2020-09-17 05:26] VITALS: BP 116/72
[2020-09-17] MEDS: CEFAZOLIN SOD 1 GM/NS 50ML 50 ML IV SCH ×2 (05:39→11:59)
[2020-09-17 06:25] LABS: ANION GAP 10.6 mmol/L (8-16); BLOOD UREA NITROGEN 9 mg/dL (7-26); BUN/CREATININE RATIO 13 (6-25); CALCIUM 7.8 mg/dL (8.4-10.2); CARBON DIOXIDE 26 mmol/L (22-29); CHLORIDE 105 mmol/L (98-107); CREATININE, SERUM 0.68 mg/dL (0.57-1.11); EST GLOMERULAR FILTRATION RATE > 60 ML/MIN (60-); GLUCOSE 100 mg/dL (74-118); POTASSIUM 3.6 mmol/L (3.5-5.1); SODIUM 138 mmol/L (136-145)
[2020-09-17] MEDS: ONDANSETRON HCL INJ 2MG/ML 2ML 2 MG/ML VIAL IV PRN (07:08)
[2020-09-17] MEDS: HYDROMORPHONE 1MG/1ML INJ IV PRN (07:08)
[2020-09-17 08:01] VITALS: BP 116/72
[2020-09-17 08:06] VITALS: BP 116/72
[2020-09-17] MEDS: VALACYCLOVIR HCL 500 MG TAB PO SCH (08:20)
[2020-09-17] MEDS ORDERED: TYLENOL # 31 EA PO (09:46)
[2020-09-17] MEDS ORDERED: CLINDAMYCIN HC300 MG PO (09:47)
[2020-09-17] MEDS ORDERED: PHENERGAN SUPP25 MG PO (09:49)
[2020-09-17] MEDS ORDERED: BACTRIM DS TAB1 EACH PO (09:53)
--- NOTE | 2020-09-17 10:24 | Discharge Summary ---
PROCEDURES PERFORMED UPON ADMISSION: Repair of complex multiple recurrent ventral hernias with partial omentectomy and placement of intraabdominal location of the Proceed ventral patch mesh, medium size and placement of a polypropylene Ethicon mesh as an onlay patch. HISTORY OF PRESENT ILLNESS: The patient is a 30-year-old female who had repair of ventral hernia in the past laparoscopically and was complicated by some type of early recurrence the next day, now presents for repair of symptomatic ventral hernia. HOSPITALIZATION COURSE: Following admission, she underwent the previously described procedure. Postoperatively, the patient complained of pain that required parenteral narcotics. She had a total of 5 different hernias of different sizes, the largest was about 5 cm. This was a complex situation that required placement of two meshes. The patient had a Weinberg catheter that was removed the next day following admission. Her diet was advanced once she was able to tolerate oral narcotics. She was released home in a stable condition. DISCHARGE MEDICATIONS: Septra, clindamycin, Tylenol No. 3, and Phenergan. FOLLOWUP: She will be followed up in my office Thursday following discharge to remove the Clive-Jessica drain that was draining serous fluid. MD AARON Santo/MAX /[id number]
[2020-09-17 11:19] VITALS: BP 112/76
[2020-09-17] MEDS ORDERED: PANTOPRAZOLE SOD 40 MG TABEC PO SCH (15:30)
== END 2020-09-17 13:30 | disposition home or self-care (01) | DRG 355 ==
LOC: OR 08:14 → PACU V 14:57 → MED/SURG 17:00
PROVIDERS: ADMIT Surgery; ATTEND Surgery
PROC: 0DBU0ZZ Excision of Omentum, Open Approach (ICD-10-PCS; 2020-09-14)
PROC: 0WUF0JZ Supplement Abdominal Wall with Synthetic Substitute, Open Approach (ICD-10-PCS; principal; 2020-09-14 10:00)
DX: K43.9 Ventral hernia without obstruction or gangrene (principal); Z20.828 Contact with and (suspected) exposure to other viral communicable diseases
CPT/HCPCS: 36415; 80048; 81025; 85025; 88302; 88305; 96361; C1781; J0690; J1100; J1170; J1885; J2001; J2250; J2405; J2710; J3010; U0002

== ENCOUNTER 2020-10-03 20:56 | Emergency (ER) | payer OTHER ==
[~2020-10-03] VITALS: Ht 160 cm; Wt 80.7 kg
[~2020-10-03 20:56] MED LIST changes: +BACTRIM DS TAB1 EACH PO; +CLINDAMYCIN HC300 MG PO; +PHENERGAN SUPP25 MG PO; +TYLENOL # 31 EA PO
[2020-10-03] MEDS ORDERED: IBUPROFEN 600 MG TAB PO STA (21:27)
[2020-10-03] MEDS ORDERED: IBUPROFEN 600 MG TAB ONE (21:33)
== END 2020-10-03 21:55 | disposition home or self-care (01) ==
LOC: ER 21:07
DX: Z20.828 Contact with and (suspected) exposure to other viral communicable diseases (principal); R50.9 Fever, unspecified; R11.2 Nausea with vomiting, unspecified
CPT/HCPCS: 99282